=== PATIENT | male | born 1970 | race African-American/Black ===

== ENCOUNTER 2016-12-29 18:06 | Emergency (ER) | payer OTHER ==
--- NOTE | 2016-12-30 06:45 | ER ---
ADMIT: 12/29/2016 RM/LOC: ER [facility] MR#: [id number] [address] [address]EL [address] [address] Emergency Room Report SEX: M AGE: 46 : 1970 DATE: 12/29/2016 Patient is a 46-year-old male, status post left total knee arthroplasty, Friday at [facility], discharged on aspirin 81 mg b.i.d. He has been compliant with physical therapy, ice, and oxycodone with Tylenol. States he is having increasing pain to the point he is unable to bear weight. Denies any fevers, chills, or shortness of breath. Exam remarkable for nontoxic, acutely ill individual with swollen, tender right leg to thigh. Wound dry without drainage. Wound edges well-approximated with adhesive. Venous Doppler negative for DVT. Normal CBC, hemoglobin 11.7, glucose 106, lactic 0.6, CRP 24.1. The patient initially declined any pain medication and then consented to oxycodone 10 mg, acetaminophen 1 g p.o. with improvement of pain. Cephalexin 1 g p.o. in department, 500 mg q.i.d. x5 days. Discussed case with Dr. Dee, resident orthopedist at [facility], who agrees with care. Patient is due to be followed up on January 14 in [place]. The patient transferred back to [facility] in good condition. Advised diclofenac gel to both knees sparing the wound as previously prescribed. Fuad Patel MD/ rosy JOB #: [id number] CC: Braden Gabriel MD, Attending Physician [facility] Physician, Family Physician . [facility]
--- NOTE | 2017-01-05 19:04 | ER ---
ADMIT: 12/29/2016 RM/LOC: ER [facility] MR#: [id number] [facility] [address] ANITA NAGEL V [address] [place] [id number] Emergency Room Report SEX: M AGE: 46 : 1970 DATE: 12/29/2016 DIAGNOSIS: Postop left knee pain. Fuad Patel MD/ rosy JOB #: [id number] CC: Braden Gabriel MD, Attending Physician [facility] Physician, Family Physician
== END 2016-12-29 21:00 | disposition home or self-care (01) ==
LOC: ER 18:06
DX: G89.18 Other acute postprocedural pain (principal); M25.562 Pain in left knee; I10 Essential (primary) hypertension; E78.5 Hyperlipidemia, unspecified; J45.909 Unspecified asthma, uncomplicated